=== PATIENT | male | born 1985 | race Caucasian/White ===

== ENCOUNTER 2017-05-01 13:26 | Emergency (ER) | payer MEDICAID ==
[~2017-05-01] VITALS: Ht 170.2 cm; Wt 77.6 kg
[~2017-05-01 13:26] MED LIST: ASPIRIN
[2017-05-01 13:34] VITALS: BP 143/91
--- NOTE | 2017-05-01 16:57 | NUR ---
Pt taken to bed 8.
--- NOTE | 2017-05-01 16:57 | NUR ---
Dr. Gabriel evaluating patient at bedside.
--- NOTE | 2017-05-01 17:00 | NUR ---
31/M c/o depression for the past 2 weeks. Pt states "My girlfriend of 17 years left me." Denies suicidal ideation or homicidal. AOX4, ambulatory with steady gait. VSS. Pt is calm and relaxed at this time. No distress noted.
--- NOTE | 2017-05-01 17:00 | NUR ---
Patient being evaluated by Dr. Gabriel at bedside.
[2017-05-01 17:23] VITALS: BP 125/76
--- NOTE | 2017-05-01 17:24 | NUR ---
Patient discharged with v/s stable. Written and verbal after care instructions given and explained. Patient alert, oriented and verbalized understanding of instructions. Ambulatory with steady gait. All questions addressed prior to discharge. ID band removed. Patient advised to follow up with PMD. Rx of AKTIVAN 0.5 MG 1 TAB PO BID given. Patient educated on indication of medication including possible reaction and side effects. Opportunity to ask questions provided and answered.
== END 2017-05-01 17:24 | disposition home or self-care (01) ==
LOC: MED 13:26
DX: F32.9 Major depressive disorder, single episode, unspecified (principal); R51 Headache; G47.00 Insomnia, unspecified; F19.90 Other psychoactive substance use, unspecified, uncomplicated
CPT/HCPCS: 99284